=== PATIENT | female | born 1980 | race Caucasian/White ===

== ENCOUNTER 2025-01-29 14:42 | Emergency (ER) | payer MEDICAID ==
[~2025-01-29] VITALS: Ht 162.6 cm; Wt 85.0 kg
[2025-01-29 14:54] VITALS: TEMP 37.1; O2SAT 99
[2025-01-29 15:23] VITALS: BP 174/99; PULSE 68; RESP 18; O2SAT 99
== END 2025-01-29 15:23 | disposition home or self-care (01) ==
LOC: ER 15:03
DX: I10 Essential (primary) hypertension (principal); E78.00 Pure hypercholesterolemia, unspecified
CPT/HCPCS: 99282